=== PATIENT | female | born 1985 ===

== ENCOUNTER 2021-09-27 19:42 | Inpatient (IN) ==
[2021-09-27] MEDS ORDERED: Buffered Lidocaine 1% SYRIN 1 ml INTRADERM ONE (21:03)
[2021-09-27] MEDS ORDERED: Lactated Ringers 1000 ml BAG 1,000 ML IV ONE (21:03)
[2021-09-27] MEDS ORDERED: Nalbuphine 10 MG/ML 1 ML VIAL IM ONE (21:08)
[2021-09-27] MEDS ORDERED: Promethazine INJ(RESTRICTED) 25 MG/ML 1 ml VIAL IM ONE (21:09)
[2021-09-27] MEDS ORDERED: Lactated Ringers 1000 ml BAG 1,000 ML IV SCH (22:00)
[2021-09-27 22:35] LABS: Rapid COVID-19 Molecular Undetected (Undetected)
[2021-09-27 23:39] LABS: Urine Benzodiazepine Screen None Detected (None Detect); Urine Cannabinoids Screen None Detected (None Detect); Urine Opiates Screen None Detected (None Detect)
[2021-09-28] MEDS ORDERED: OBEPIDURAL 250 ML EPIDURAL ONE (06:56)
[2021-09-28 06:57] LABS: ABS Lymphocytes 0.7 10^3/ul (1.0-4.8); ABS Monocytes 0.8 10^3/ul (0-0.8); ABS Neutrophils 11.6 10^3/ul (1.5-7.7); Eosinophil % 0.1 %; Hematocrit 38 % (35-47); Lymphocyte % 5.4 %; Mean Corpuscular HGB Conc 34 g/dL (31-36); Mean Corpuscular Hemoglobin 30 pg (27-31); Mean Corpuscular Volume 86 fL (80-97); Mean Platelet Volume 9.1 fL (7.4-10.4); Platelet Count 191 10^3/uL (150-450); Red Cell Distribution Width 16 % (10-15); White Blood Count 13.1 10^3/uL (3.5-10.8)
[2021-09-28] MEDS ORDERED: Lactated Ringers 1000 ml BAG 500 ML IV PRN (07:45)
[2021-09-28] MEDS ORDERED: EPHEDrine (Pressors) 50 MG/ML VIAL IV PUSH PRN (07:45)
[2021-09-28] MEDS ORDERED: Sodium Citrate/Citric Acid LIQ 15 ML UDC PO PRN (07:45)
[2021-09-28] MEDS ORDERED: Phenylephrine 40 mcg/mL 10mL (400mcg) SYRINGE IV PUSH PRN (07:45)
[2021-09-28] MEDS ORDERED: Lactated Ringers 1000 ml BAG 1,000 ML IV ONE (07:45)
[2021-09-28] MEDS ORDERED: OBEPIDURAL 250 ML EPIDURAL SCH (08:00)
[2021-09-28] MEDS ORDERED: Lactated Ringers 1000 ml BAG 1,000 ML IV SCH ×2 (08:00→10:00)
[2021-09-28 08:14] LABS: Urine Appearance Clear; Urine Bilirubin Negative (Negative); Urine Blood 1+ (Negative); Urine Color Yellow; Urine Glucose Negative (Negative); Urine Ketones Negative (Negative); Urine Nitrite Negative (Negative); Urine Protein Negative (Negative); Urine Urobilinogen Negative (Negative)
[2021-09-28] MEDS ORDERED: Oxytocin in LR 20 UNITS/1,000 ML BAG IVPB ONE (08:15)
[2021-09-28 08:34] LABS: Urine Bacteria Absent (Absent); Urine Red Blood Cell 1+(3-5/hpf) (Absent); Urine White Blood Cell Trace(0-5/hpf) (Absent)
[2021-09-28] MEDS ORDERED: Oxytocin in LR 20 UNITS/1,000 ML BAG IVPB SCH (09:04)
[2021-09-28] MEDS ORDERED: Lidocaine 1% VIAL 10 MG/ML VIAL ONE (09:47)
[2021-09-28] MEDS: Dibucaine 1% OINT 28.35 GM TUBE PR PRN (15:56)
[2021-09-28] MEDS: Witch Hazel PAD JAR TOPICAL PRN (15:56)
[2021-09-29 08:03] LABS: ABS Eosinophils 0.1 10^3/ul (0-0.6); ABS Lymphocytes 1.4 10^3/ul (1.0-4.8); ABS Monocytes 0.6 10^3/ul (0-0.8); ABS Neutrophils 9.2 10^3/ul (1.5-7.7); Eosinophil % 0.9 %; Hematocrit 34 % (35-47); Hemoglobin 11.3 g/dL (12.0-16.0); Lymphocyte % 12.3 %; Mean Corpuscular HGB Conc 33 g/dL (31-36); Mean Corpuscular Hemoglobin 29 pg (27-31); Mean Corpuscular Volume 87 fL (80-97); Mean Platelet Volume 9.3 fL (7.4-10.4); Platelet Count 195 10^3/uL (150-450); Red Blood Count 3.92 10^6 /uL (3.70-4.87); Red Cell Distribution Width 16 % (10-15); White Blood Count 11.3 10^3/uL (3.5-10.8)
[2021-09-29] MEDS: Witch Hazel PAD JAR TOPICAL PRN (21:57)
[2021-09-29] MEDS: Dibucaine 1% OINT 28.35 GM TUBE PR PRN (21:57)
[2021-09-30 08:19] VITALS: BP 105/58
== END 2021-09-30 14:33 | disposition home or self-care (01) | DRG 560 ==
LOC: MCHOBOUT 19:42 → MCHOB 20:55
PROVIDERS: ADMIT Midwife; ATTEND Advanced Practice Midwife